=== PATIENT | male | born 1955 | race Two or more races ===

== ENCOUNTER 2020-03-02 06:00 | Day surgery (SDC) | payer OTHER ==
[~2020-03-02 06:00] MED LIST: ADDERALL 30 MG30 MG PO; HYDROCHLOROTHIA25 MG PO; IBU800 MG PO; LOSARTAN POTAS100 MG PO; PRILOSE PO; ZYRTEC10 MG PO
== END 2020-03-02 10:30 | disposition home or self-care (01) ==
LOC: CIR.AMB 06:00 → ADM 08:45 → CIR.AMB 10:30
PROVIDERS: ATTEND Orthopaedic Surgery Hand Surgery
DX: G56.02 Carpal tunnel syndrome, left upper limb (principal)